=== PATIENT | female | born 1985 | race American Indian/Alaskan Native ===

== ENCOUNTER 2016-11-17 10:44 | Outpatient (CLI) | payer MEDICAID ==
--- NOTE | 2016-11-17 14:34 | Fluoroscopy Report ---
Small bowel follow through: History: Crohn's disease. Findings: Transit of barium from gastroduodenal to ileocecal region was rapid and within one hour. The jejunum appears unremarkable. Distal loops of ileum not optimally visualized due to confluence of loops. The terminal ileum is not optimally visualized. There is a single thickened loop of small bowel with mucosal irregularity noted at the right lower quadrant with separation of small bowel loops in the adjacent region suggestive of inflammatory bowel disease. No evidence of bowel obstruction. No extravasation of contrast. No definite evidence of fistula. Impression: Findings as detailed above. Recommend CT scan of abdomen and pelvis for further evaluation.
== END 2016-11-17 10:45 | disposition home or self-care (01) ==
LOC: FLUORO 10:44
PROVIDERS: ATTEND Internal Medicine Gastroenterology
DX: K50.90 Crohn's disease, unspecified, without complications (principal)
CPT/HCPCS: 74250